=== PATIENT | female | born 1965 | race American Indian/Alaskan Native ===

== ENCOUNTER 2016-12-08 15:43 | Outpatient (CLI) | payer BC ==
[~2016-12-08 15:43] MED LIST: NACL ONE
--- NOTE | 2016-12-08 18:43 | Cat Scan Report ---
FINAL REPORT PROCEDURE: CT abdomen and pelvis with contrast. TECHNIQUE: Computerized axial tomography of the abdomen and pelvis was performed after the IV injection of iodinated nonionic contrast. HISTORY: Lower abdominal pain. COMPARISON: No prior studies are available for comparison. FINDINGS: The lung bases are clear. There are no pleural effusions. The heart size is normal. The liver, spleen and pancreas appear normal. The gallbladder is present. The adrenal glands are not enlarged. Both kidneys appear normal in size and configuration. The abdominal aorta has a normal caliber. There is no retroperitoneal adenopathy. The gastrointestinal tract is unremarkable. The appendix is not definitely visualized and may have been removed. The bladder is empty. The uterus appears mildly enlarged. The regional skeleton appears intact. There is a tiny umbilical hernia containing fat. IMPRESSION: No evidence of acute disease in the abdomen or pelvis.
== END 2016-12-08 15:44 | disposition home or self-care (01) ==
LOC: CT 15:43
PROVIDERS: ATTEND Internal Medicine Gastroenterology
DX: K42.9 Umbilical hernia without obstruction or gangrene (principal); N85.2 Hypertrophy of uterus
CPT/HCPCS: 74177; Q9967